=== PATIENT | female | born 1960 | race Hispanic/Latino ===

== ENCOUNTER 2024-06-14 13:00 | Emergency (ER) | payer OTHER, MEDICARE ==
[~2024-06-14] VITALS: Ht 157.5 cm; Wt 68.0 kg
[~2024-06-14 13:00] MED LIST: AMLO5TAB4 PO; GABA100C PO
[2024-06-14 13:12] VITALS: TEMP 98.8
[2024-06-14 14:09] LABS: BASOPHILS # (AUTO) 0.03 K/uL (0.00-0.20); BASOPHILS % (AUTO) 0.4 % (0.0-5.0); EOSINOPHILS # (AUTO) 0.06 K/uL (0.00-0.70); EOSINOPHILS % (AUTO) 0.7 % (0.0-8.0); HEMATOCRIT 44.1 % (36-48); IMMATURE GRANULOCYTE ABSOLUTE 0.01 K/uL (0-1); LYMPHOCYTES # (AUTO) 3.6 K/uL (1.0-4.8); MEAN CORPUSCULAR HEMOGLOBIN 31.6 pg (27.0-33.0); MEAN CORPUSCULAR HGB CONC 33.3 g/dL (32.0-36.0); MEAN CORPUSCULAR VOLUME 94.8 fL (79-99); MONOCYTES # (AUTO) 0.7 K/uL (0.1-1.0); MONOCYTES % (AUTO) 7.7 % (3.0-13.0); NEUTROPHILS % (AUTO) 48.1 % (40.0-77.0); PLATELET COUNT (AUTO) 299 K/uL (130-400); RED BLOOD CELL COUNT(AUTO) 4.65 MIL/uL (4.00-5.50); WHITE BLOOD COUNT (AUTO) 8.4 K/uL (4.8-10.8)
--- NOTE | 2024-06-14 14:14 | ERN ---
General Chief Complaint: Abdominal Pain Stated Complaint: SHARP STOMACHE PAINS,RECENT SURGERY Time Seen by MD: 13:08 History of Present Illness Initial Comments 64-year-old female who presents for lower abdominal pain. Patient had a surgery colon resection by Dr. Warner about a month ago. She reports that since the surgery she has had lower abdominal pain has been increasing in severity. It is described as a sharp pain in the lower abdomen. She reports subjective chills at home. No fevers. No diarrhea. Allergies: Coded Allergies: No Known Drug Allergies (Unverified Allergy, Unknown, 05/01/24) Home Meds Active Scripts Acetaminophen with Codeine (Acetaminophen-Cod #3 Tablet) 300 Mg-30 Mg Tablet, 1 TAB PO Q6HPRN PRN for pain for 5 Days, #20 TAB 0 Refills Prov:ROSALEE NGUYEN DO 06/14/24 Gabapentin (Neurontin) 100 Mg Capsule, 100 MG PO TID, #30 CAP Prov:REGINA GARCIA [employer]ILLING [employer]MENT SUPERVISOR 05/05/24 Amlodipine Besylate (Norvasc 5Mg Tab) 5 Mg Tablet, 10 MG PO DAILY, #60 TAB Prov:REGINA GARCIA BILLING [employer]PARTMENT SUPERVISOR 05/05/24 Past Medical History Past Medical History: No Pertinent History Past Surgical History: Hysterectomy, Cholecystectomy, Other Surgical History Other: NECK FUSSION ROS Dictation CONSTITUTIONAL: No chills, no fever, no weakness, no diaphoresis, no malaise. HEAD/FACE: No signs of trauma. EENT: No eye pain, no blurred vision, no tearing, no double vision, no ear pain, no ear discharge, no nose pain, no nasal congestion, no throat pain, no throat swelling, no mouth pain. RESPIRATORY: No cough, no orthopnea, no SOB, no stridor, no wheezing. CARDIOVASCULAR: No chest pain, no edema, no palpitations, no syncope. GASTROINTESTINAL/ABDOMINAL: Lower abdominal pain GENITOURINARY: No abnormal discharge, no dysuria, no frequent urination, no hematuria. No complaints of pain in the genitals. MUSCULOSKELETAL: No back pain, no gout, no joint pain, no joint swelling, no muscle pain, no muscle stiffness, no neck pain. INTEGUMENTARY: No change in color, no change in hair/nails, no dryness, no lesion, no lumps, no rash. NEUROLOGICAL/PSYCH: No anxiety, not depressed, no emotional problem, no headache, no numbness, no pre-existing deficit, no history of seizures, no tremors, no weakness. HEMATOLOGIC/LYMPHATIC: Not anemic, no history of blood clots, no apparent bleeding, no bruising, glands not swollen. All Systems Negative, Except as Noted. Physical Exam Physical Exam Dictation VITAL SIGNS: Reviewed. GENERAL APPEARANCE: Alert, oriented x3, no acute distress HEAD AND FACE: Non-traumatic. EYES: PERRL, pink conjunctivas, eyelid no trauma, anterior chamber clear. EARS: Pinnas intact and no signs of trauma or erythema. Ear canals clear and no discharge. TMs no erythema. NOSE: No discharge, no bleeding. OROPHARYNX: Mouth normal, teeth no caries, tongue pink. Pharynx clear, no erythema. Tonsils no exudates, no abscesses noted. Mucous membrane moist. NECK: Supple, non-tender, no thyromegaly, no masses, no JVD, no bruits. BREAST: Deferred. CHEST: No tenderness, no crepitus, no paradoxical movement, no retractions. LUNGS: Clear, well-ventilated, symmetric, no rales, no wheezing, no rhonchi, no stridor, good breath sounds bilaterally. HEART: Regular rate, regular rhythm, no murmur, no gallops. VASCULAR: No peripheral edema. ABDOMEN: Soft, positive bowel sounds, nondistended, no guarding, nontender, no rebound, no masses no hepatomegaly, no splenomegaly, no Heller's sign, no hernias. RECTAL: Deferred. GENITAL: Deferred. NEUROLOGICAL: Normal speech, gross motor function intact, gross sensory function intact. MUSCULOSKELETAL: Neck nontender, full range of motion, back nontender, full range of motion. EXTREMITIES: Nontender, full range of motion. SKIN: Color pink, dry, no turgor, no rash, no lacerations, no abrasions, no contusions. LYMPHATICS: Deferred. Results Laboratory and Microbiology Lab and Micro Result Laboratory Tests Test 06/14/24 13:59 06/14/24 17:25 White Blood Count 8.4 K/uL (4.8-10.8) Red Blood Count 4.65 MIL/uL (4.00-5.50) Hemoglobin 14.7 g/dL (12.0-16.0) Hematocrit 44.1 % (36-48) Mean Corpuscular Volume 94.8 fL (79-99) Mean Corpuscular Hemoglobin 31.6 pg (27.0-33.0) Mean Corpuscular Hemoglobin Concent 33.3 g/dL (32.0-36.0) Red Cell Distribution Width 13.0 % (11.0-15.5) Platelet Count 299 K/uL (130-400) Mean Platelet Volume 9.0 fL (7.5-10.5) Immature Granulocyte % (Auto) 0.1 % (0-1) Neutrophils (%) (Auto) 48.1 % (40.0-77.0) Lymphocytes (%) (Auto) 43.0 % (21.0-51.0) Monocytes (%) (Auto) 7.7 % (3.0-13.0) Eosinophils (%) (Auto) 0.7 % (0.0-8.0) Basophils (%) (Auto) 0.4 % (0.0-5.0) Neutrophils # (Auto) 4.0 K/uL (1.8-7.7) Lymphocytes # (Auto) 3.6 K/uL (1.0-4.8) Monocytes # (Auto) 0.7 K/uL (0.1-1.0) Eosinophils # (Auto) 0.06 K/uL (0.00-0.70) Basophils # (Auto) 0.03 K/uL (0.00-0.20) Absolute Immature Granulocyte (auto 0.01 K/uL (0-1) Nucleated Red Blood Cells 0.0 % (0.0-0.19) Sodium Level 144 mmol/L (136-145) Potassium Level 4.2 mmol/L (3.5-5.1) Chloride Level 105 mmol/L (101-111) Carbon Dioxide Level 32 mmol/L (21-32) Blood Urea Nitrogen 6 mg/dL (7-18) L Creatinine 0.9 mg/dL (0.5-1.0) Glomerular Filtration Rate Calc 71 mL/min (>90) Random Glucose 102 mg/dL (70-105) Lactic Acid Level 1.5 mmol/L (0.8-2.5) Total Calcium 9.8 mg/dL (8.5-10.1) Total Bilirubin 0.5 mg/dL (0.2-1.0) Direct Bilirubin 0.1 mg/dL (0.0-0.3) Aspartate Amino Transf (AST/SGOT) 28 U/L (10-37) Alanine Aminotransferase (ALT/SGPT) 40 U/L (12-78) Alkaline Phosphatase 86 U/L (50-136) Total Creatine Kinase 49 U/L (21-232) Troponin I High Sensitivity 29 ng/L (4-50) Total Protein 7.7 g/dL (6.0-8.3) Albumin 4.0 g/dL (3.5-5.0) Lipase 68 U/L (16-77) Urine Color LIGHT-YELLOW (YELLOW) Urine Appearance CLEAR (CLEAR) Urine pH 5.5 (5.0-8.0) Urine Specific [place] 1.005 (1.001-1.031) Urine Protein NEGATIVE mg/dL (NEGATIVE) Urine Glucose (UA) NEGATIVE mg/dL (NEGATIVE) Urine Ketones NEGATIVE mg/dL (NEGATIVE) Urine Occult Blood SMALL (NEGATIVE) H Urine Nitrate NEGATIVE (NEGATIVE) Urine Bilirubin NEGATIVE mg/dL (NEGATIVE) Urine Urobilinogen 0.2 mg/dL (0.2-1.0) Urine Leukocyte Esterase NEGATIVE Steven/uL Urine RBC 0-1 /HPF (0-1) Urine WBC 0-1 /HPF (0-1) Urine Squamous Epithelial Cells FEW /HPF (0-2) Urine Bacteria None /HPF (None Seen) Urine Hyaline Casts 2-5 /LPF (0-1 /LPF) H MDM CC: Abdominal pain status post colon resection six weeks ago. Historian: Patient Comorbidities: Arthritis, cholecystectomy, hysterectomy Limitations by social determinants of health: None Differential diagnosis: Infection, abscess, bowel obstruction, diverticulitis, other Patient has mild tenderness to the left lower quadrant, otherwise she is nontoxic in appearance. Vital signs: Hypertension otherwise stable in the ER. Labs: No leukocytosis or anemia. No shift or bands. Chemistry is stable. Liver enzymes are all normal. Lactic acid normal. CK normal. Troponin normal. Lipase normal. Urinalysis shows small occult blood otherwise unremarkable. External Chart review: I reviewed the operative note from Dr. Garcia. Colon resection due to a polyp. Also lysis of adhesion. CT of the abdomen and pelvis with contrast per my independent interpretation shows no free air or no major surgical abnormalities. Radiologist read as absent gallbladder with a dilated CBD, postop changes without evidence of complication. Patient received IV morphine here in the ER for treatment. On re-evaluation the patient is no longer tender. She reports feeling well. I did consider an admission for observation and possibly surgical consultation, but the patient reports that she feels well. She wanted to make sure there were no complications regarding her recent surgery. She reports that she can follow up as an outpatient with the surgeon. At this point in time I do not see any life threats or surgical pathology, this seems like a reasonable plan. We will discharge. We will DC with a prescription for Tylenol with codeine for significant pain. Please note, there was a delay of care due to waiting for a CT scan. The patient did not get a CT scan after order for over 3 hours. ED Course Orders Procedure Category Date Status Time Cbc With Differential LAB 06/14/24 Complete 13:12 Troponin I High LAB 06/14/24 Complete Sensitivity 13:12 Urinalysis Profile LAB 06/14/24 Complete 13:12 Creatine Kinase, Total LAB 06/14/24 Complete 13:12 Lipase LAB 06/14/24 Complete 13:12 Basic Metabolic Panel LAB 06/14/24 Complete 13:12 Hepatic Function Panel LAB 06/14/24 Complete 13:12 Lactic Acid LAB 06/14/24 Complete 13:12 Ct Abdomen/Pelvis CT 06/14/24 Resulted W/Contrast 13:43 Morphine 4mg Syg PHA 06/14/24 Complete (Morphine 4mg Syg) 14:00 Iohexol (Omnipaque) PHA 06/14/24 Complete 17:18 Current Medications Medications (Trade) Dose Ordered Sig/Dilip Route PRN Reason Start Time Stop Time Status Last Admin Dose Admin Iohexol (Omnipaque) 75 ml STK-MED ONCE IV 06/14/24 17:18 06/14/24 17:18 DC Morphine Sulfate (morPHINE 4MG SYG) 4 mg ONCE ONCE IVP 06/14/24 14:00 06/14/24 14:01 DC 06/14/24 17:28 Vital Signs Date Time Temp Pulse Resp B/P (MAP) Pulse Ox O2 Delivery O2 Flow Rate FiO2 06/14/24 18:36 77 18 145/84 100 Room Air* 0 21 11/13/24 13:12 98.8 83 20 177/94 99 Room Air 0 DX & DISP Disposition: Discharge Departure Impression: Primary Impression: Post-operative pain Condition: Stable Scripts Acetaminophen with Codeine (Acetaminophen-Cod #3 Tablet) 300 Mg-30 Mg Tablet 1 TAB PO Q6HPRN PRN for pain for 5 Days, #20 TAB 0 Refills Prov: ROSALEE NGUYEN DO 06/14/24 Additional Instructions: There are no dangerous findings on your workup today. Your vital signs did show mildly elevated blood pressure here in the ER. Please take your blood pressure medications at home. Follow up with your primary doctor regarding this. Your lab work (CBC with differential, basic metabolic panel, lactic acid, liver function tests, calcium, CK, troponin, lipase, urinalysis) is normal. The CT scan of your abdomen and pelvis does not show any dangerous findings or major abnormalities. As we discussed, I recommend that you focused on your diet and bowel regimen. I recommend a high fruit diet. Drink plenty of liquids. Avoid processed foods. Avoid low fiber foods. Consider taking a probiotic. You can get this at any health store. You can consider [id number] laxatives as needed. You can also consider [id number] indigestion medicines such as Maalox or Tums. I have prescribed some Tylenol with codeine to use for significant pain. As we discussed, I recommend he follow up with your primary doctor or your surgeon for further treatment and evaluation. Please refer to the emergency department if you have any concerns. Referrals: JAEL DOTSON (PCP) ROSALEE NGUYEN DO Jun 14, 2024 14:14
[2024-06-14 14:26] LABS: CREATININE 0.9 mg/dL (0.5-1.0); POTASSIUM 4.2 mmol/L (3.5-5.1)
[2024-06-14 14:33] LABS: BILIRUBIN,DIRECT 0.1 mg/dL (0.0-0.3); BILIRUBIN,TOTAL 0.5 mg/dL (0.2-1.0); TOTAL PROTEIN, SERUM 7.7 g/dL (6.0-8.3)
[2024-06-14] MEDS ORDERED: IOHEXOL-350 75 ML VIAL IV ONE (17:18)
[2024-06-14] MEDS: morPHINE 4 MG SYG IVP ONE (17:28)
[2024-06-14 17:31] LABS: APPEARANCE,URINE CLEAR (CLEAR); BILIRUBIN,URINE NEGATIVE (NEGATIVE); COLOR,URINE LIGHT-YELLOW (YELLOW); GLUCOSE, URINE (UA) NEGATIVE (NEGATIVE); KETONES,URINE NEGATIVE (NEGATIVE); LEUKOCYTE ESTERASE ,URINE NEGATIVE Leu/uL (NEGATIVE); NITRATE,URINE NEGATIVE (NEGATIVE); OCCULT BLOOD,URINE SMALL (NEGATIVE); PH,URINE 5.5 (5.0-8.0); PROTEIN,URINE NEGATIVE (NEGATIVE); UROBILINOGEN,URINE 0.2 mg/dL (0.2-1.0)
[2024-06-14 17:35] LABS: ADD UA MICROSCOPIC YES
[2024-06-14 17:37] LABS: MUCUS,URINE RARE LPF (None Seen); RBC,URINE 0-1 /HPF (0-1); SQUAMOUS EPITHELIAL CELL,UR FEW /HPF (0-2); WBC,URINE 0-1 /HPF (0-1)
--- NOTE | 2024-06-14 18:12 | HMCIMG ---
CT ABDOMEN/PELVIS W/CONTRAST REASON: lower abd pain, s/p colon resection COMPARISON: None. TECHNIQUE: Images are obtained from lung bases to the symphysis pubis following IV contrast, 75 cc Omnipaque [id number]. FINDINGS: Lung bases are clear. There are no focal liver lesions. There are normal-appearing kidneys.. Spleen and pancreas appear unremarkable. There has been a previous cholecystectomy. The common duct is dilated at 1.3 cm. There is mild distention of the central portion of the intrahepatic biliary tree. These findings suggest a common duct obstruction, possible choledocholithiasis. There are surgical changes consistent with a right hemicolectomy. Ileocolic anastomosis appears unremarkable. There is no evidence of obstruction. This includes normal appearance of the appendix There is no evidence of free fluid or intraperitoneal air. There are no focal fluid collections. Aorta and retroperitoneum appear normal as do pelvic soft tissue structures. The anterior abdominal wall is intact. Osseous structures appear unremarkable. IMPRESSION: 1. Absent gallbladder, common duct is dilated to 1.3 cm in the intrahepatic biliary tree is mildly distended, this may reflect choledocholithiasis or other cause distal common duct obstruction. 2. Postop changes without evidence of complication. CT was performed with one or more following dose reduction techniques: automated exposure control, adjustment of the mA and kv according to patient's size, or use of a iterative reconstruction technique.
[2024-06-14 18:36] VITALS: BP 145/84; PULSE 77; RESP 18; O2SAT 100
[2024-06-14] MEDS ORDERED: ACET-2079 PO (18:40)
== END 2024-06-14 19:02 | disposition home or self-care (01) ==
LOC: EDH 13:00
DX: G89.18 Other acute postprocedural pain (principal); M19.90 Unspecified osteoarthritis, unspecified site; Z79.899 Other long term (current) drug therapy; Z90.49 Acquired absence of other specified parts of digestive tract; Z90.710 Acquired absence of both cervix and uterus
CPT/HCPCS: 99285; 74177; 96374; 82550; 80076; 84484; 80048; 83690; 85025; 83605; 81001; 36415; J2270; Q9967

== ENCOUNTER → 2024-07-17 | Outpatient (CLI) | payer OTHER, MEDICARE ==
[~2024-07-17] VITALS: Ht 157.5 cm; Wt 68.5 kg
[~2024-07-17] MED LIST changes: +ACET-2079 PO; +DICY20TA2 PO
[2024-07-17 12:18] LABS: BASOPHILS # (AUTO) 0.05 K/uL (0.00-0.20); BASOPHILS % (AUTO) 0.6 % (0.0-5.0); EOSINOPHILS # (AUTO) 0.08 K/uL (0.00-0.70); EOSINOPHILS % (AUTO) 0.9 % (0.0-8.0); HEMATOCRIT 45.3 % (36-48); IMMATURE GRANULOCYTE ABSOLUTE 0.03 K/uL (0-1); LYMPHOCYTES # (AUTO) 3.3 K/uL (1.0-4.8); LYMPHOCYTES % (AUTO) 37.8 % (21.0-51.0); MEAN CORPUSCULAR HEMOGLOBIN 32.3 pg (27.0-33.0); MEAN CORPUSCULAR HGB CONC 33.6 g/dL (32.0-36.0); MEAN CORPUSCULAR VOLUME 96.2 fL (79-99); MONOCYTES # (AUTO) 0.6 K/uL (0.1-1.0); MONOCYTES % (AUTO) 6.8 % (3.0-13.0); NEUTROPHILS # (AUTO) 4.7 K/uL (1.8-7.7); NEUTROPHILS % (AUTO) 53.6 % (40.0-77.0); PLATELET COUNT (AUTO) 327 K/uL (130-400); RED BLOOD CELL COUNT(AUTO) 4.71 MIL/uL (4.00-5.50); RED CELL DISTRIBUTION WIDTH 13.1 % (11.0-15.5); WHITE BLOOD COUNT (AUTO) 8.8 K/uL (4.8-10.8)
[2024-07-17 12:38] LABS: INR 1.01 (0.85-1.15); PROTHROMBIN TIME 11.3 SEC (9.6-11.6)
[2024-07-17 12:46] LABS: ALBUMIN 3.8 g/dL (3.5-5.0); BILIRUBIN,TOTAL 0.3 mg/dL (0.2-1.0); CREATININE 0.8 mg/dL (0.5-1.0); POTASSIUM 4.9 mmol/L (3.5-5.1); TOTAL PROTEIN, SERUM 7.7 g/dL (6.0-8.3)
== END | disposition home or self-care (01) ==
LOC: LAB 11:31
PROVIDERS: ATTEND Internal Medicine
DX: K83.8 Other specified diseases of biliary tract (principal)
CPT/HCPCS: 36415; 80053; 82977; 85025; 85610

== ENCOUNTER 2024-07-19 06:05 | Day surgery (SDC) | payer OTHER, MEDICARE ==
[2024-07-19] VITALS (10 sets, daily range): BP systolic 125–195; BP diastolic 50–89; PULSE 69–80; RESP 14–17; TEMP 97.4–97.5
[~2024-07-19] VITALS: Ht 157.5 cm; Wt 68.5 kg
[~2024-07-19 06:05] MED LIST changes: -ACET-2079 PO; -AMLO5TAB4 PO
[2024-07-19] MEDS: 0.9%NACL 1000ML 1,000 ML IV ONE (07:08)
[2024-07-19] MEDS ORDERED: proPOFol 10 MG/ML 20ML VIAL IV ONE ×2 (07:50→08:06)
== END 2024-07-19 09:53 | disposition home or self-care (01) ==
LOC: ENDO 06:05 → DAH 06:05 → ENDO 09:53
PROVIDERS: ATTEND Internal Medicine
DX: R10.13 Epigastric pain (principal); R93.5 Abnormal findings on diagnostic imaging of other abdominal regions, including retroperitoneum; K29.50 Unspecified chronic gastritis without bleeding; K44.9 Diaphragmatic hernia without obstruction or gangrene; K83.8 Other specified diseases of biliary tract; R14.0 Abdominal distension (gaseous); M19.90 Unspecified osteoarthritis, unspecified site; Z90.49 Acquired absence of other specified parts of digestive tract; Z90.710 Acquired absence of both cervix and uterus; Z98.890 Other specified postprocedural states; Z86.0100 Personal history of colon polyps, unspecified; Z79.899 Other long term (current) drug therapy
CPT/HCPCS: 43237; 43239; J7030 ×2; J2704 ×2; A4620; A4215 ×2; A4223; A4222; A4221; A4663; A4606; J3490